=== PATIENT | male | born 1960 | race Two or more races ===

== ENCOUNTER 2024-11-15 06:13 | Inpatient (IN) | payer OTHER ==
[~2024-11-15] VITALS: Ht 182.9 cm; Wt 137.0 kg
[2024-11-15] MEDS: ceFAZolin 2 GM/D5W50ml 50 ML IV ONE (06:29)
[2024-11-15] MEDS: CEFEPIME 1GM/ 50ML 50 ML IV ONE (06:32)
[2024-11-15] MEDS: ROPIVACAINE 0.5% (5MG/ML) 20ML AMPULE IJ ONE (06:32)
[2024-11-15] MEDS: TRANEXAMIC ACID 20 ML ONE (06:32)
[2024-11-15] MEDS ORDERED: fentaNYL CITRATE 100 MCG/2 ML VL ONE (07:05)
[2024-11-15] MEDS ORDERED: MIDAZOLAM HCL 2MG/2ML 2ml VIAL (1mg/ml) ONE (07:06)
[2024-11-15] MEDS ORDERED: LIDOCAINE 2% (LOCAL ANESTH.) PF 5ml SDV ONE (07:07)
[2024-11-15] MEDS ORDERED: METOCLOPRAMIDE HCL 5MG/ml INJ 2ml VIAL ONE (07:07)
[2024-11-15] MEDS ORDERED: ONDANSETRON HCL 4 MG/2 ML VIAL ONE (07:07)
[2024-11-15] MEDS ORDERED: PROPOFOL 10 MG/ML 20 ML IV ONE (07:08)
[2024-11-15] MEDS: TETRACAINE 1% INJ 2 ML VIAL IJ ONE ×2 (07:11→07:12)
[2024-11-15] MEDS ORDERED: LIDOCAINE W/ EPINEPHRINE 1% 20ML VIAL ONE (08:24)
[2024-11-15] MEDS ORDERED: DexAMETHasone SOD PHOS 10MG/1ML VIAL INJ ONE (08:24)
--- NOTE | 2024-11-15 09:20 | DVHOP2 ---
Operative Report - 2 Report Details Date: 11/15/24 Preop Diagnosis: Left knee degenerative arthritis Postop Diagnosis: Left knee degenerative arthritis Surgeon: Radha Torres MD Drying Machine Tender: Linda GONZALEZ Anesthesiologist: Gio Olson CRNA Anesthesia: General, Regional Drains: Billy closed wound suction Implant: [employer] knee size 10 femur PS, size 10 tibial base plate, size 14 standard poly, 35 patella Consent: The patient was informed of the risks and benefits of the procedure. These include but are not limited to complications of anesthesia, postoperative infection, incomplete relief of symptoms, recurrence of symptoms, damage to blood vessels, nerves and tendons, deep venous thrombosis, pulmonary embolism and possible need for repeat surgery in the future. Complications: None Estimated Blood Loss: 50 cc Fluids: See anesthesia record Findings: Varus deformity, denuded cartilage with eburnated bone, osteophytes Indications for Surgery: Left knee degenerative arthritis with severe pain and functional impairment despite nonoperative management Name of Procedure Performed Left total knee arthroplasty Procedure Details Procedure Details: The patient was brought to the operating room and placed on the table in the supine position after being given spinal anesthetic with adequate analgesia obtained. Surgical timeout was performed verifying patient, laterality and procedure Preop patient received IV cefepime IV Ancef and IV tranexamic acid. Tourniquet was applied to the lower extremity. Extremity was elevated, exsanguinated Esmarch, and tourniquet inflated. Lower extremity was prepped and draped in sterile fashion. Midline incision was made followed by medial arthrotomy. I exposed the anterior medial and lateral tibial plateau and the anterior distal femur. Bovie and aqua mantis were used for hemostasis. I excised the anterior meniscal tissue with Bovie. I excised a portion of the fat pad with Bovie. The patella was everted and the knee flexed. I drilled the distal femur and suctioned the hole to reduce the risk of fat emboli. I inserted intramedullary guide with 5 degree valgus setting. I pinned the distal femoral cutting block anteriorly. Intramedullary rula was removed. Distal femoral cut was made and the block removed. I brought my attention to the tibia setting up the external cutting jig for the tibia paying attention to slope, rotation and varus valgus alignment. I set the depth and pinned the block. I used the external alignment rula to aid in checking alignment. Bone cut was made and bone removed releasing soft tissue attachments with Bovie. Cutting block removed. I then checked the extension gap and deemed adequate and removed the femur and tibia pins. I flexed the knee and applied the femoral sizing guide to the femur. I checked the size and external rotation setting at 90 degrees to Whitesides line and checking the epicondylar axis. I drilled the holes then removed the sizing guide and pin. I then tapped on the 4 in 1 cutting block and checked with the donny wing anteriorly to make sure that I would not notch then pinned the block. Cuts were made and the block and pins were removed. Bone was removed with curved osteotome. I used a rongeur to remove any remaining osteophytes at the femur and tibia. I then used a lamina simulation developer to open up the back alternating between the medial and lateral side. Any remaining meniscal tissue was excised with scalpel. I used curved osteotome, curette and rongeur to remove any posterior osteophytes. I prophylactically coagulated with aqua mantis. I then tapped on the template for the box cut and pinned it. Box cut was made and bone removed. Template and pin removed. I then tapped on the femoral trial. I then brought my attention back to the tibia sizing it. I used the external alignment rula to make sure that rotation and alignment were good. I made a Bovie zaid at the tibial tray zaid identifying rotation for later use. I tried various tibial polytrials. [I then brought my attention to the patella. I sequentially dissected soft tissue with Bovie. I checked the thickness with caliper. I set the appropriate depth of cut on the cutting guide. I attached the cutting guide made my cut. I then sized the patella and made my drill holes. I then placed the patella trial with appropriate depth based on overall precut thickness. ] The patella tracked nicely without thumb pressure. I removed the trials. I pinned the tray and used the reamer and keel punch. The implants were brought into the field while bone preparation was started. I used both normal saline irrigation and the CarboJet to prepare the bone. Once cement was ready I applied cement to the tibial implant and tibial bone tapped it on and removed excess cement in usual fashion. In similar fashion I tapped on the femoral implant. I inserted the trial polyethylene and brought the knee into 30 degrees flexion. [I then applied the patella implant in similar fashion holding pressure with the pressurization device.] I irrigated with bactisurge irrigant. Once cement cured, I checked stability and range of motion as well as patella tracking. tourniquet was released and hemostasis maintained with aqua mantis. I inserted the polyethylene and again checked stability. I used a 2 grams of vancomycin half of which was placed deep and half superficial. I repaired the extensor mechanism with the knee in flexion with #1 Ethibond interrupted [id number]. Deep subcutaneous tissue was closed with 0 Vicryl. Superficial subcutaneous tissue was closed with 2-0 vicryl interrupted. Skin was closed with rian. I then applied the [billy closed wound suction]. Patient tolerated the procedure well and was brought to recovery room in stable condition. Condition Stable Disposition Still a Patient RADHA TORRES MD Nov 15, 2024 09:19
[2024-11-15] MEDS ORDERED: ACETAMINOPHEN 325 MG TAB PO PRN (09:30)
[2024-11-15] MEDS: VANCOMYCIN HCL 1000 MG VL ONE (09:30)
[2024-11-15] MEDS ORDERED: oxyCODONE HCL 5MG TAB PO PRN ×2 (09:30)
[2024-11-15 09:51] VITALS: PULSE 84; RESP 22; O2SAT 6
[2024-11-15] MEDS: D5W/LACTATED RINGERS 1,000 ML IV SCH (10:00)
[2024-11-15] MEDS ORDERED: hydrALAZINE HCL 20 MG/ML VL IV PRN (10:00)
[2024-11-15] MEDS ORDERED: HYDROmorphone HCL 2 MG/ML VL/or syr IV PRN (10:00)
[2024-11-15] MEDS ORDERED: ONDANSETRON HCL 4 MG/2 ML VIAL IV ONE (10:00)
[2024-11-15] MEDS ORDERED: METOCLOPRAMIDE HCL 5MG/ml INJ 2ml VIAL IV ONE (10:00)
--- NOTE | 2024-11-15 11:02 | DVH ---
CLINICAL INDICATION: Postop TECHNIQUE: 3 radiographic views of the left knee were obtained. Comparison: None FINDINGS/IMPRESSION: Postsurgical changes from left knee arthroplasty.
[2024-11-15] MEDS: KETOROLAC TROMETH 30 MG/ML 1ML VIAL IV SCH (12:00)
[2024-11-15] MEDS: KETOROLAC TROMETH 30 MG/ML 1ML VIAL IV ONE (13:35)
[2024-11-15] MEDS: KETOROLAC TROMETH 30 MG/ML 1ML VIAL ONE (13:38)
[2024-11-15] MEDS: ACETAMINOPHEN 325 MG TAB PO SCH (13:44)
--- NOTE | 2024-11-15 13:49 | DVHINCON2 ---
Date of service: Nov 15, 2024 Reason for Consultation Postop knee surgery medical management while in the hospital History of Present Illness This is a 64-year-old gentleman without any significant medical history except for osteoarthritis came to the hospital and underwent successful right knee surgery. Postop patient is clinically stable except for pain at the surgical site. Hospitalist consultation is requested per orthopedic surgeon. Past Medical History Osteoarthritis, obesity with a BMI 41 Past Surgical History None significant Allergies: Coded Allergies: Statins (Unverified Adverse Reaction, Intermediate, muscle cramps, 11/13/24) Home Meds No Active Prescriptions or Reported Meds Current Medications Current Medications Medications (Trade) Dose Ordered Sig/Alexus Route PRN Reason Start Time Stop Time Status Last Admin Dextrose/Lactated Ringer's 1,000 ml @ 100 mls/hr Q10H IV 11/15/24 09:30 11/15/24 13:48 DC 11/15/24 10:00 Acetaminophen (Tylenol Tablet) 650 mg Q4HP PRN PO MILD PAIN (1-3 PAIN SCALE) 11/15/24 09:30 Cefazolin Sodium/ Dextrose 50 ml @ 50 mls/hr Q8HR IV 11/15/24 14:00 11/15/24 22:59 Acetaminophen (Tylenol Tablet) 650 mg Q6HR PO 11/15/24 12:00 11/15/24 13:44 Ketorolac Tromethamine (Toradol Injection) 15 mg Q6HR IV 11/15/24 12:00 11/20/24 11:59 Pregabalin (Lyrica Capsule) 50 mg BID PO 11/15/24 10:00 Oxycodone HCl 5 mg Q4HP PRN PO MODERATE PAIN (4-6 PAIN SCALE) 11/15/24 09:30 Oxycodone HCl 10 mg Q4HP PRN PO SEVERE PAIN (7-10 PAIN SCALE) 11/15/24 09:30 Aspirin 81 mg BID PO 11/16/24 10:00 Hydralazine HCl (Apresoline Injection) 5 mg Q10M PRN IV SBP>160 11/15/24 10:00 11/15/24 10:51 DC Hydromorphone HCl (Dilaudid Injection) 0.5 mg Q10M PRN IV SEVERE PAIN (7-10 PAIN SCALE) 11/15/24 10:00 11/15/24 10:41 DC Famotidine (Pepcid Tablet) 20 mg DAILY PO 11/16/24 10:00 UNV Review of Systems Denies any chest pain shortness for breath. No fevers chills or sweats. No headache dizziness or lightheadedness. Other review of systems reviewed normal. Vital Signs Vital Signs Date Time Temp Pulse Resp B/P (MAP) Pulse Ox O2 Delivery O2 Flow Rate FiO2 11/15/24 10:53 Room Air 97 11/15/24 10:20 5.0 11/15/24 10:15 84 22 139/75 (96) 98 11/15/24 09:51 97.5 97.5 Physical Exam Patient is comfortable and pleasant in bed without any acute distress. Alert awake oriented x3. HEENT neck supple no JVD. Heart regular rate and rhythm S1 and S2 no murmurs gallops. Lungs fair air movement. Chest tube will expansion. No rales wheezes. Abdomen is soft obese nontender positive bowel sounds. Extremities no edema positive distal pedal pulses. Assessment DJD of the knees Morbid obesity With a BMI 41 Status post right knee arthroplasty surgery Postop patient is clinically stable. I will put him on incentive spirometry. Physical therapy evaluation. Social Service consult for home DME and physical therapy. DVT GI prophylaxis. Pain and nausea medications as he is on per Orthopedic surgery. Laxatives as needed. Otherwise continue rest of supportive care and treatment. Follow up labs in the morning. Further clinical management per clinical course and postop recovery. Plan discussed with: Patient CHUCK CLAY MD Nov 15, 2024 13:49
[2024-11-15] MEDS ORDERED: ONDANSETRON HCL 4 MG/2 ML VIAL IV PRN (14:00)
[2024-11-15 17:00] VITALS: BP 145/92; PULSE 99; RESP 17; TEMP 98.6; O2SAT 95
[2024-11-15 18:11] VITALS: BP 145/72; PULSE 99; RESP 18; TEMP 98.1; O2SAT 98
[2024-11-15 20:00] VITALS: PULSE 90; RESP 18; O2SAT 97
[2024-11-15 21:00] VITALS: BP 142/89; PULSE 90; RESP 18; TEMP 98.7; O2SAT 97
[2024-11-15] MEDS: PREGABALIN 25 MG CAP PO SCH (21:18)
[2024-11-15] MEDS: ceFAZolin 2 GM/D5W50ml 50 ML IV SCH (21:26)
[2024-11-15] MEDS: SENNA 8.6 MG TAB PO SCH (21:30)
[2024-11-16] VITALS (7 sets, daily range): BP systolic 98–138; BP diastolic 63–96; PULSE 81–98; RESP 18–20; TEMP 36.7; O2SAT 94–97
[2024-11-16 07:15] LABS: Chloride 104 mmol/L (98-107); Potassium 3.9 mmol/L (3.5-5.1); Sodium 137 mmol/L (136-145)
[2024-11-16 07:16] LABS: Anion Gap 10 (5-15); Carbon Dioxide 23 mmol/L (20-31)
[2024-11-16 07:17] LABS: Calcium 9.1 mg/dL (8.7-10.4)
[2024-11-16 07:19] LABS: Hematocrit 40.4 % (41.0-53.0); Hemoglobin 14.1 g/dL (13.5-17.5); Mean Corpuscular Hemoglobin 30.4 pg (28.0-32.0); Mean Corpuscular Volume 86.7 fL (80.0-100.0); Platelet Count (auto) 191 10^3/uL (140-450); Red Blood Cells 4.66 10^6/uL (4.5-5.90); Red Cell Distribution Width 13.7 % (11.8-14.3); White Blood Cell 9.6 10^3/uL (4.4-10.8)
[2024-11-16 07:21] LABS: Glucose 125 mg/dL (74-106)
[2024-11-16 07:25] LABS: Basophils % (manual) 0 (0.0-2.0); Blast Cells 0; Eosinophils % (manual) 0 (0-7); Metamyelocytes % 0; Myelocytes % 0; Promyelocytes % 0; Reactive Lymphocytes 0
[2024-11-16 07:41] LABS: Band Neutrophils % (manual) 2; Lymphocytes % (manual) 14 (10.0-50.0); Monocytes % (manual) 14 (0-12); Platelet Estimate Adequate; RBC Morphology Normal
[2024-11-16 07:50] LABS: BUN/Creatinine Ratio 18.3 (10.0-20.0); Blood Urea Nitrogen 17 mg/dL (9-23)
[2024-11-16] MEDS: ASPirin 81 mg TAB PO SCH (10:20)
[2024-11-16] MEDS: FAMOTIDINE 20 MG TAB PO SCH (10:20)
--- NOTE | 2024-11-16 15:25 | DVHDS2 ---
Discharge Summary Date of Admission Nov 15, 2024 at 09:21 Date of Discharge: Nov 16, 2024 Labs/Diagnostic Data: Laboratory Results Test 11/16/24 06:29 White Blood Count 9.6 10^3/uL (4.4-10.8) Red Blood Count 4.66 10^6/uL (4.5-5.90) Hemoglobin 14.1 g/dL (13.5-17.5) Hematocrit 40.4 % (41.0-53.0) Mean Corpuscular Volume 86.7 fL (80.0-100.0) Mean Corpuscular Hemoglobin 30.4 pg (28.0-32.0) Mean Corpuscular Hemoglobin Concent 35.0 g/dL (32.0-36.0) Red Cell Distribution Width 13.7 % (11.8-14.3) Platelet Count 191 10^3/uL (140-450) Mean Platelet Volume 8.1 fL (6.9-10.8) Neutrophils (%) (Auto) % (37.0-80.0) Lymphocytes (%) (Auto) % (10.0-50.0) Monocytes (%) (Auto) % (0.0-12.0) Basophils (%) (Auto) % (0.0-2.0) Neutrophils # (Auto) 10 ^3/uL (1.6-8.6) Lymphocytes # (Auto) 10 ^3/uL (0.4-5.4) Monocytes # (Auto) 10 ^3/uL (0-1.3) Differential Total Cells Counted 100.0 (100) Neutrophils % (Manual) 70 (37.0-80.0) Band Neutrophils % (Manual) 2 Lymphocytes % (Manual) 14 (10.0-50.0) Monocytes % (Manual) 14 (0-12) Eosinophils % (Manual) 0 (0-7) Basophils % (Manual) 0 (0.0-2.0) Metamyelocytes % (manual) 0 Myelocytes % (Manual) 0 Promyelocytes % (Manual) 0 Blast Cells % (Manual) 0 Reactive Lymphocytes 0 Platelet Estimate Adequate Red Blood Cell Morphology Normal Sodium Level 137 mmol/L (136-145) Potassium Level 3.9 mmol/L (3.5-5.1) Chloride Level 104 mmol/L (98-107) Carbon Dioxide Level 23 mmol/L (20-31) Anion Gap 10 (5-15) Blood Urea Nitrogen 17 mg/dL (9-23) Creatinine 0.93 mg/dL (0.700-1.30) Glomerular Filtration Rate Calc 91 mL/min (>90) BUN/Creatinine Ratio 18.3 (10.0-20.0) Serum Glucose 125 mg/dL (74-106) Calcium Level 9.1 mg/dL (8.7-10.4) Other Laboratory Tests 11/16/24 06:29 Brief Hx & Hospital Course: This is a 64-year-old gentleman without any significant medical history except for osteoarthritis came to the hospital and underwent successful right knee surgery. Postop patient is clinically stable except for pain at the surgical site. Hospitalist consultation is requested per orthopedic surgeon. Postop patient at bed and re-treat developed. Participated with the physical therapy. Ambulated more than 40 ft in the hallways with a walker. Feeling better. Pain is controlled with the pain medications. Patient is therefore felt stable to be discharged home. Patient is advised to follow up with the orthopedic surgeon in 1-2 weeks postop follow up care. Patient is advised to continue the aspirin and pain medications as prescribed by orthopedic surgeon. I talked with the patient's regarding his hospital diagnosis, treatment he received, discharge medications, discharge instructions and follow up plan of care. He has verbalized understanding of these are negative with the care plan as outlined. Operations or Procedures Operative Report - 2 Report Details Date: 11/15/24 Preop Diagnosis: Left knee degenerative arthritis Postop Diagnosis: Left knee degenerative arthritis Surgeon: Radha Torres MD Structural [employer] Shop Supervisor: Linda GONZALEZ Anesthesiologist: Gio Olson CRNA Anesthesia: General, Regional Drains: Billy closed wound suction Implant: [email or web address] Empower knee size 10 femur PS, size 10 tibial base plate, size 14 standard poly, 35 patella Consent: The patient was informed of the risks and benefits of the procedure. These include but are not limited to complications of anesthesia, postoperative infection, incomplete relief of symptoms, recurrence of symptoms, damage to blood vessels, nerves and tendons, deep venous thrombosis, pulmonary embolism and possible need for repeat surgery in the future. Complications: None Estimated Blood Loss: 50 cc Fluids: See anesthesia record Findings: Varus deformity, denuded cartilage with eburnated bone, osteophytes Indications for Surgery: Left knee degenerative arthritis with severe pain and functional impairment despite nonoperative management Name of Procedure Performed Left total knee arthroplasty Procedure Details Procedure Details: The patient was brought to the operating room and placed on the table in the supine position after being given spinal anesthetic with adequate analgesia obtained. Surgical timeout was performed verifying patient, laterality and procedure Preop patient received IV cefepime IV Ancef and IV tranexamic acid. Tourniquet was applied to the lower extremity. Extremity was elevated, exsanguinated Esmarch, and tourniquet inflated. Lower extremity was prepped and draped in sterile fashion. Midline incision was made followed by medial arthrotomy. I exposed the anterior medial and lateral tibial plateau and the anterior distal femur. Bovie and aqua mantis were used for hemostasis. I excised the anterior meniscal tissue with Bovie. I excised a portion of the fat pad with Bovie. The patella was everted and the knee flexed. I drilled the distal femur and suctioned the hole to reduce the risk of fat emboli. I inserted intramedullary guide with 5 degree valgus setting. I pinned the distal femoral cutting block anteriorly. Intramedullary rula was removed. Distal femoral cut was made and the block removed. I brought my attention to the tibia setting up the external cutting jig for the tibia paying attention to slope, rotation and varus valgus alignment. I set the depth and pinned the block. I used the external alignment rula to aid in checking alignment. Bone cut was made and bone removed releasing soft tissue attachments with Bovie. Cutting block removed. I then checked the extension gap and deemed adequate and removed the femur and tibia pins. I flexed the knee and applied the femoral sizing guide to the femur. I checked the size and external rotation setting at 90 degrees to Whitesides line and checking the epicondylar axis. I drilled the holes then removed the sizing guide and pin. I then tapped on the 4 in 1 cutting block and checked with the donny wing anteriorly to make sure that I would not notch then pinned the block. Cuts were made and the block and pins were removed. Bone was removed with curved osteotome. I used a rongeur to remove any remaining osteophytes at the femur and tibia. I then used a lamina blacktop spreader to open up the back alternating between the medial and lateral side. Any remaining meniscal tissue was excised with scalpel. I used curved osteotome, curette and rongeur to remove any posterior osteophytes. I prophylactically coagulated with aqua mantis. I then tapped on the template for the box cut and pinned it. Box cut was made and bone removed. Template and pin removed. I then tapped on the femoral trial. I then brought my attention back to the tibia sizing it. I used the external alignment rula to make sure that rotation and alignment were good. I made a Bovie zaid at the tibial tray zaid identifying rotation for later use. I tried various tibial polytrials. [I then brought my attention to the patella. I sequentially dissected soft tissue with Bovie. I checked the thickness with caliper. I set the appropriate depth of cut on the cutting guide. I attached the cutting guide made my cut. I then sized the patella and made my drill holes. I then placed the patella trial with appropriate depth based on overall precut thickness. ] The patella tracked nicely without thumb pressure. I removed the trials. I pinned the tray and used the reamer and keel punch. The implants were brought into the field while bone preparation was started. I used both normal saline irrigation and the CarboJet to prepare the bone. Once cement was ready I applied cement to the tibial implant and tibial bone tapped it on and removed excess cement in usual fashion. In similar fashion I tapped on the femoral implant. I inserted the trial polyethylene and brought the knee into 30 degrees flexion. [I then applied the patella implant in similar fashion holding pressure with the pressurization device.] I irrigated with bactisurge irrigant. Once cement cured, I checked stability and range of motion as well as patella tracking. tourniquet was released and hemostasis maintained with aqua mantis. I inserted the polyethylene and again checked stability. I used a 2 grams of vancomycin half of which was placed deep and half superficial. I repaired the extensor mechanism with the knee in flexion with #1 Ethibond interrupted [id number]. Deep subcutaneous tissue was closed with 0 Vicryl. Superficial subcutaneous tissue was closed with 2-0 vicryl interrupted. Skin was closed with rian. I then applied the [billy closed wound suction]. Patient tolerated the procedure well and was brought to recovery room in stable condition. Condition Stable RADHA TORRES MD Nov 15, 2024 09:19 Condition at Discharge: Stable Final Diagnosis/Problems List Left knee degenerative arthritis status post knee surgery Discharge Disposition: Home with Health Services Discharge Instruct/Medications Diet: Consistent carbohydrate, Cardiac 2g Na,low cholest Activity: No Restrictions, As Tolerated Follow Up/Referral: Orthopedic surgeon Dr. Torres next week post knee surgery follow up Medications: As prescribed by orthopedic surgeon Discharge Statement: "Patient was advised to return to the ER or call 911 if any headaches, dizziness, shortness of breath, chest pain, abdominal pain, bleeding, fevers, or worsening of medical condition. Patient was counseled about treatment plan, medications, possible side effects, patientverbalized understanding. All questions were answered to the best of my ability. This discharge took greater then 30 minutes in planning, reviewing documentation, counseling the patient, and discussing with other team members." ASSESSMENT ASSESSMENT Assessment Left knee degenerative arthritis status post knee surgery CHUCK CLAY MD Nov 16, 2024 15:25
--- NOTE | 2024-11-16 17:05 | DVHPN2 ---
Progress Note - Dictate Date Seen: Nov 16, 2024 Medical Necessity Reason Pt with a Central, PICC or Fol: No Subjective Patient was lying comfortably in bed and reports minimal postoperative pain to his knee. Patient reports that he was able to get up and walk with the help of physical therapy and his walker and was able to get down the phelan around the nurses station and back to his bed with minimal issues. Patient is otherwise feeling well denying any other complaints or concerns during my evaluation and is ready to go home. vital signs Vital Sign Date Time Temp Pulse Resp B/P (MAP) Pulse Ox O2 Delivery O2 Flow Rate FiO2 11/16/24 13:00 98.0 81 20 118/66 (83) 96 98.0 11/16/24 08:00 Room Air* 0 21 Total Intake and Output 11/15/24 11/15/24 11/16/24 15:00 23:00 07:00 Intake Total 1000 ml 400 ml Output Total 200 ml Balance 1000 ml 200 ml medications Current Medications Medications Dose Ordered Sig/Alexus Route Start Time Stop Time Status Last Admin Dose Admin Acetaminophen 650 mg Q4HP PRN PO 11/15/24 09:30 Acetaminophen 650 mg Q6HR PO 11/15/24 12:00 11/16/24 12:11 650 MG Ketorolac Tromethamine 15 mg Q6HR IV 11/15/24 12:00 11/20/24 11:59 11/16/24 12:15 15 MG Pregabalin 50 mg BID PO 11/15/24 10:00 11/16/24 10:20 50 MG Oxycodone HCl 5 mg Q4HP PRN PO 11/15/24 09:30 Oxycodone HCl 10 mg Q4HP PRN PO 11/15/24 09:30 Aspirin 81 mg BID PO 11/16/24 10:00 11/16/24 10:20 81 MG Famotidine 20 mg DAILY PO 11/16/24 10:00 11/16/24 10:20 20 MG Ondansetron HCl 4 mg Q4HPRN PRN IV 11/15/24 14:00 Sennosides 8.6 mg HS PO 11/15/24 22:00 11/15/24 21:30 8.6 MG objective A&O x4 in no acute distress Knee range of motion grossly limited with pain on movement Billy dressing clean, dry, intact, but was not maintaining suction Replaced billy dressing with Aquacel dressing, without complications No distal edema or calf tenderness to palpation Neurovascularly intact with cap refill less than 2 seconds laboratory and microbiology Laboratory Tests 11/16/24 06:29 Test 11/16/24 06:29 Range/Units Serum Glucose 125 H 74-106 mg/dL Assessment/Plan Patient to be discharged home and advised to remain weight-bearing as tolerated with the assistance of a walker. Advised the patient to follow up with our office in 10-14 days for his 1st postoperative evaluation and to call us if he has any remaining questions or concerns. Rx sent via our outpatient EMR system. Plan discussed with: Patient BRIANA LOVING Nov 16, 2024 17:05
--- NOTE | 2024-11-16 17:07 | DVHDS2 ---
Discharge Summary Date of Admission Nov 15, 2024 at 09:21 Date of Discharge: Nov 16, 2024 Labs/Diagnostic Data: Laboratory Results Test 11/16/24 06:29 White Blood Count 9.6 10^3/uL (4.4-10.8) Red Blood Count 4.66 10^6/uL (4.5-5.90) Hemoglobin 14.1 g/dL (13.5-17.5) Hematocrit 40.4 % (41.0-53.0) Mean Corpuscular Volume 86.7 fL (80.0-100.0) Mean Corpuscular Hemoglobin 30.4 pg (28.0-32.0) Mean Corpuscular Hemoglobin Concent 35.0 g/dL (32.0-36.0) Red Cell Distribution Width 13.7 % (11.8-14.3) Platelet Count 191 10^3/uL (140-450) Mean Platelet Volume 8.1 fL (6.9-10.8) Neutrophils (%) (Auto) % (37.0-80.0) Lymphocytes (%) (Auto) % (10.0-50.0) Monocytes (%) (Auto) % (0.0-12.0) Basophils (%) (Auto) % (0.0-2.0) Neutrophils # (Auto) 10 ^3/uL (1.6-8.6) Lymphocytes # (Auto) 10 ^3/uL (0.4-5.4) Monocytes # (Auto) 10 ^3/uL (0-1.3) Differential Total Cells Counted 100.0 (100) Neutrophils % (Manual) 70 (37.0-80.0) Band Neutrophils % (Manual) 2 Lymphocytes % (Manual) 14 (10.0-50.0) Monocytes % (Manual) 14 (0-12) Eosinophils % (Manual) 0 (0-7) Basophils % (Manual) 0 (0.0-2.0) Metamyelocytes % (manual) 0 Myelocytes % (Manual) 0 Promyelocytes % (Manual) 0 Blast Cells % (Manual) 0 Reactive Lymphocytes 0 Platelet Estimate Adequate Red Blood Cell Morphology Normal Sodium Level 137 mmol/L (136-145) Potassium Level 3.9 mmol/L (3.5-5.1) Chloride Level 104 mmol/L (98-107) Carbon Dioxide Level 23 mmol/L (20-31) Anion Gap 10 (5-15) Blood Urea Nitrogen 17 mg/dL (9-23) Creatinine 0.93 mg/dL (0.700-1.30) Glomerular Filtration Rate Calc 91 mL/min (>90) BUN/Creatinine Ratio 18.3 (10.0-20.0) Serum Glucose 125 mg/dL (74-106) Calcium Level 9.1 mg/dL (8.7-10.4) Other Laboratory Tests 11/16/24 06:29 Brief Hx & Hospital Course: Patient was brought to the hospital yesterday to undergo a left total knee arthroplasty, he tolerated the procedure well without complications and was kept overnight for postoperative observation. He denied any overnight events and has remained medically stable and reports that he was able to get up and walk with the help of physical therapy and his walker and was able to get down the phelan around the nurses station and back to his bed with minimal pain. Patient is billy dressing was not maintaining suction due to two puncture wounds lateral to his incision and replaced the billy dressing with Aquacel. I advised the patient to remain weight-bearing as tolerated with the assistance of a walker. Patient understood and agreed. Patient is ready to go home. Condition at Discharge: Stable Final Diagnosis/Problems List Left knee degenerative arthritis status post knee surgery Discharge Disposition: Home with Health Services Discharge Instruct/Medications Diet: Consistent carbohydrate, Cardiac 2g Na,low cholest Activity: No Restrictions, As Tolerated Follow Up/Referral: Orthopedic surgeon Dr. Webb next week post knee surgery follow up Medications: As prescribed by orthopedic surgeon Discharge Statement: "Patient was advised to return to the ER or call 911 if any headaches, dizziness, shortness of breath, chest pain, abdominal pain, bleeding, fevers, or worsening of medical condition. Patient was counseled about treatment plan, medications, possible side effects, patientverbalized understanding. All questions were answered to the best of my ability. This discharge took greater then 30 minutes in planning, reviewing documentation, counseling the patient, and discussing with other team members." ASSESSMENT ASSESSMENT Assessment Left knee degenerative arthritis status post knee surgery BRIANA LOVING Nov 16, 2024 17:07
== END 2024-11-16 18:15 | disposition home or self-care (01) | DRG 470 ==
LOC: SUR 06:13 → OVERFLOW 09:21 → WEST WING 17:43
PROVIDERS: ADMIT Orthopaedic Surgery; ATTEND Orthopaedic Surgery
PROC: 0SRD069 Replacement of Left Knee Joint with Oxidized Zirconium on Polyethylene Synthetic Substitute, Cemented, Open Approach (ICD-10-PCS; principal; 2024-11-15 07:18)
DX: M17.12 Unilateral primary osteoarthritis, left knee (principal); Z68.41 Body mass index [BMI] 40.0-44.9, adult; E66.01 Morbid (severe) obesity due to excess calories; I10 Essential (primary) hypertension
CPT/HCPCS: 36415; 73562; 80048; 85007; 85027; 86850; 86900; 86901; 97110; 97163; 97530; G0378; J1100; J1885; J2003; J2250; J2405; J2704